=== PATIENT | male | born 1960 | race Two or more races ===

== ENCOUNTER 2022-09-20 20:19 | Emergency (ER) | payer MEDICAID, MEDICARE ==
[~2022-09-20] VITALS: Ht 165.1 cm; Wt 108.9 kg
--- NOTE | 2022-09-20 20:40 | NUR ---
BIBWIFE FROM HOME WITH CC OF COUGH, FEVER SINCE YESTERDAY. + HOARSENESS OF VOICE. 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 PT IS AAO X 4, BREATHING UNLABORED, STABLE ON ROOM AIR. PT ATTACHED TO MONITOR AND PULSE OX. AWAITING MD HANEY
[2022-09-20] MEDS ORDERED: BENZ1LOZ58 PO (21:29)
[2022-09-20] MEDS ORDERED: TYL2T PO (21:29)
[2022-09-20] MEDS ORDERED: AMOX-430 PO (21:29)
[2022-09-20] MEDS ORDERED: DEXAMETHASONE SOD PHOSPHATE 10 MG/ML VIAL IM ONE (21:30)
[2022-09-20] MEDS ORDERED: DEXAMETHASONE SOD PHOSPHATE 10 MG/ML VIAL ONE (21:36)
--- NOTE | 2022-09-20 21:45 | NUR ---
Patient discharged to home in stable condition. Written and verbal after care instructions given. Patient verbalizes understanding of instruction. Pt ambulatory with a steady gait.
[2022-09-20 21:48] VITALS: BP 157/75
== END 2022-09-20 21:49 | disposition home or self-care (01) ==
LOC: ER 20:20
DX: J06.9 Acute upper respiratory infection, unspecified (principal); I10 Essential (primary) hypertension; J45.909 Unspecified asthma, uncomplicated; Z79.899 Other long term (current) drug therapy; Z91.013 Allergy to seafood
CPT/HCPCS: 99283; 96372; J1100